=== PATIENT | male | born 1935 | race Caucasian/White ===

== ENCOUNTER 2016-09-16 22:35 | Emergency (ER) | payer MEDICARE, BC ==
[2016-09-16 22:53] VITALS: TEMP 97.5
[2016-09-16 23:03] LABS: BASOPHILS % (AUTO) 1 % (0-3); EOSINOPHILS % (AUTO) 7 % (0-9); HEMATOCRIT 44 % (39-53); MEAN CORPUSCULAR HGB CONC 34.8 gm/dl (32.0-36.0); MEAN CORPUSCULAR VOLUME 87 fL (80-100); MONOCYTES % (AUTO) 9.5 % (0-12); NEUTROPHILS % (AUTO) 65.9 % (37-80)
[2016-09-16 23:20] LABS: CALCIUM 8.3 mg/dl (8.5-10.1); GLOM FILT RATE 64 mL/min (>60); SODIUM 141 mMol/L (136-145)
[2016-09-17 00:53] VITALS: BP 164/80; PULSE 56; RESP 14; O2SAT 97
== END 2016-09-16 23:55 | disposition home or self-care (01) | DRG 312 ==
LOC: ED 22:35
DX: R55 Syncope and collapse (principal)
CPT/HCPCS: 36415; 80048; 84484; 85025; 93005; 99284